=== PATIENT | male | born 1990 | race Caucasian/White ===

== ENCOUNTER 2017-09-12 02:57 | Inpatient (IN) | payer OTHER ==
[~2017-09-12] VITALS: Ht 175.3 cm; Wt 94.5 kg
[2017-09-12 03:48] LABS: BASOPHIL (%) 0.4 % (0-1); BASOPHIL COUNT 0.1 K/uL (0-0.1); EOSINOPHIL (%) 0.7 % (0-5); EOSINOPHIL COUNT 0.1 K/uL (0-0.3); HEMATOCRIT 45.4 % (38.0-50.0); HEMOGLOBIN 15.7 G/DL (12.5-16.6); IMMATURE GRANULOCYTE (%) 0.4 % (0.0-0.7); LYMPHOCYTE (%) 15.9 % (15-42); LYMPHOCYTE COUNT 2.2 K/uL (1.0-2.8); MCH 29.6 PG (29.0-34.0); MCHC 34.6 G/DL (30.0-36.0); MCV 85.5 FL (86-99); MONOCYTE (%) 5.2 % (3-12); MONOCYTE COUNT 0.7 K/uL (0-0.8); NEUTROPHIL (%) 77.4 % (45-76); NEUTROPHIL COUNT 10.6 K/uL (1.8-6.4); PLATELET COUNT 241 K/uL (156-360); RBC DIS.WIDTH-CV 12.1 % (11.8-14.6); RBC DIS.WIDTH-SD 37.8 % (39-53); RED BLOOD COUNT 5.31 M/uL (4.00-5.50); WHITE BLOOD COUNT 13.7 K/uL (4.1-10.2)
[2017-09-12 04:07] LABS: AMYLASE 46 IU/L (1-118); CHLORIDE 107 mEq/L (99-109); POTASSIUM 4.3 mEq/L (3.7-5.4); SODIUM 142 mEq/L (136-147)
[2017-09-12 04:09] LABS: GLUCOSE 101 mg/dL (70-99)
[2017-09-12 04:12] LABS: SERUM ETHYL ALCOHOL 151 mg/dL
[2017-09-12 04:13] LABS: GFR ESTIMATE (CALCULATED) > 59 mL/min/ (58.99-99999); UREA NITROGEN (BUN) 12 mg/dL (9-23)
[2017-09-12 04:16] LABS: LIPASE 18 U/L (1.0-51.0)
[2017-09-12 05:40] LABS: APPEARANCE CLEAR ((CLEAR)); BILIRUBIN NEGATIVE; BLOOD NEGATIVE; COLOR STRAW ((YELLOW)); GLUCOSE (STRIP) NEGATIVE; KETONES NEGATIVE; LEUKOCYTES NEGATIVE; NITRITE NEGATIVE; PROTEIN (STRIP) NEGATIVE; SPECIFIC GRAVITY 1.033 (1.000-1.030); UCUL ADDED? NO; UROBILINOGEN 0.2 MG/DL (0.2-1.0)
[2017-09-12] MEDS ORDERED: CALCIUM 600 +1 EAC3 PO (10:35)
[2017-09-13] VITALS (7 sets, daily range): BP systolic 122–131; BP diastolic 64–76
[2017-09-14 04:36] VITALS: BP 129/75
[2017-09-14 07:47] VITALS: BP 126/77
[2017-09-14 17:20] VITALS: BP 133/70
[2017-09-14 19:33] VITALS: BP 133/81
[2017-09-14 23:53] VITALS: BP 136/78
[2017-09-15 07:27] VITALS: BP 111/55
[2017-09-15 08:03] VITALS: BP 125/75
[2017-09-15] MEDS ORDERED: OXYCODONE HCL10 MG PO (09:18)
[2017-09-15] MEDS ORDERED: MOTRIN600 MG PO (09:18)
== END 2017-09-15 15:37 | disposition home or self-care (01) | DRG 909 ==
LOC: TRA 02:57 → EME 02:57 → 3EAST 09:36 → EDOF 09:36 → ENRESERV 09:55 → 3EAST 13:30
PROVIDERS: Emergency Medicine
DX: S91.021A Laceration with foreign body, right ankle, initial encounter (principal); S97.01XA Crushing injury of right ankle, initial encounter; F17.210 Nicotine dependence, cigarettes, uncomplicated; F10.129 Alcohol abuse with intoxication, unspecified; V86.56XA Driver of dirt bike or motor/cross bike injured in nontraffic accident, initial encounter; Y90.6 Blood alcohol level of 120-199 mg/100 ml; S93.401A Sprain of unspecified ligament of right ankle, initial encounter; S40.812A Abrasion of left upper arm, initial encounter; S40.811A Abrasion of right upper arm, initial encounter; G89.11 Acute pain due to trauma; E73.9 Lactose intolerance, unspecified; Z56.0 Unemployment, unspecified; Z82.49 Family history of ischemic heart disease and other diseases of the circulatory system
CPT/HCPCS: 73610; 73701; 80048; 81003; 82150; 83690; 85025; 86850; 86900; 86901; 97530 GP; 99281; 99285; A6021; A6260; G0480; J0690; J1100; J1170; J1885; J2250; J2270; J2405; J3010; J3411; J7030; S0020